=== PATIENT | female | born 1990 | race Caucasian/White ===

== ENCOUNTER 2017-08-26 09:26 | Emergency (ER) | payer SELFPAY ==
[2017-08-26 09:32] VITALS: RESP 16; TEMP 98.8
--- NOTE | 2017-08-26 09:45 | EDPHY ---
H & P Stated Complaint: bloody diarrhea x 24 hrs/travel[place] from [facility] thursday Time Seen by Provider: 08/26/17 09:44 HPI/ROS: HPI: This is a 27-year-old female who presents with Chief Complaint: bloody diarrhea x 24 hrs/traveled to [place] from [place] thursday Location: GI Quality: Bloody diarrhea Duration: 24 hr Signs and Symptoms: no fever, no nausea, no vomiting, no hematemesis, no blood in stool, no abdominal bloating, no diarrhea, no back pain, no urinary symptoms , no vaginal bleeding or discharge, no indigestion, no chest pain, no shortness of breath Timing: Acute, intermittent episodes Severity: [id number] Context: Patient has a history hypothyroidism, traveled 2 days ago from [facility] to [facility] on a 12 hr plane flight. She reports that yesterday she had 3 episodes of loose stool that was blood tinged and this morning she also had a small amount of loose stool that was blood tinged around 5:00 a.m. She is able to eat breakfast approximately 1-2 hours after without any difficulty. She reports that prior to having the diarrhea she will have abdominal cramping or pressure but denies any pain. LMP 2-3 weeks ago. No history of inflammatory bowel or ischemic bowel disease. Denies any fever/ urinary symptoms/vaginal bleeding discharge/hemorrhoids. Patient reports that she feels fine other than noting that small amounts of blood in her stool. There is a possibility of food borne illness. Patient is extremely concerned about cost and once the minimal workup performed as she has no travel insurance and is returning to [place] in 1 week. Modifying Factors: None Comment: ROS: see HPI Constitutional: No fever, no chills, no weight loss Eyes: No blurred vision Respiratory: No shortness of breath, no cough Cardiovascular: No chest pain, no palpitations Gastrointestinal: No nausea, no vomiting, no diarrhea, no hematemesis, + blood in stool Genitourinary: No dysuria, no blood in urine Extremities: No myalgias, no edema Neurologic: No weakness, no numbness Skin: No rashes, no petechiae Hematologic: No bruising, no bleeding MEDICAL/SURGICAL/SOCIAL HISTORY: Medical history: Hypothyroidism. Surgical history: Denies Social history: PhD student. Originally from [facility]. CONSTITUTIONAL: Extremely well-appearing adult white female, nontoxic in appearance, awake and alert, no obvious distress HEENT: Atraumatic and normocephalic, PERRL, EOMI. Tympanic membranes clear. Oropharynx clear, no exudate and moist pink mucosa. Airway patent. No lymphadenopathy. No meningismus. Cardiovascular: Normal S1/S2, regular rate, regular rhythm, without murmur rub or gallop. PULMONARY/CHEST: Symmetrical and nontender. Clear to auscultation bilaterally. Good air movement. No accessory muscle usage. ABDOMEN: Soft, nondistended, nontender, no rebound, no guarding, no peritoneal signs, no masses or organomegaly. No CVAT. RECTAL: Good sphincter tone, light brown stool in vault, no external hemorrhoids , no fissures, no palpable masses, guaiac negative EXTREMITIES: 2/2 pulses, strength 5/5, no deformities, no clubbing, no cyanosis or edema. NEUROLOGICAL: no focal neuro deficits. GCS 15. SKIN: Warm and dry, no erythema. no rash. Good capillary refill. Source: Patient Exam Limitations: No limitations - Personal History LMP (Females 10-55): 22-28 Days Ago Current Tetanus/Diphtheria Vaccine: Unsure - Medical/Surgical History Hx Asthma: No Hx Chronic Respiratory Disease: No Hx Diabetes: No Hx Cardiac Disease: No Hx Renal Disease: No Hx Cirrhosis: No Hx Alcoholism: No Hx HIV/AIDS: No Hx Splenectomy or Spleen Trauma: No Other PMH: hypothyroid - Social History Smoking Status: Never smoked Constitutional: Initial Vital Signs Temperature (C) 37.1 C 08/26/17 09:30 Heart Rate 84 08/26/17 09:30 Respiratory Rate 16 08/26/17 09:30 Blood Pressure 132/83 H 08/26/17 09:30 O2 Sat (%) 98 08/26/17 09:30 O2 Delivery Mode Room Air Allergies/Adverse Reactions: No Known Allergies Allergy (Unverified 08/26/17 09:28) Home Medications: Medication Instructions Recorded Ciprofloxacin [Cipro] 500 mg PO BID #10 tab 08/26/17 Levothyroxine 08/26/17 Medical Decision Making ED Course/Re-evaluation: Labs and guaiac ordered Abdomen soft and nontender; doubt surgical abdomen Patient has politely declined any imaging of her abdomen and pelvis as well as IV fluids. Patient tolerating p.o. Without difficulty. Guaiac negative Labs reviewed and grossly unremarkable Advised to start Cipro and supportive care. Any worsening symptoms return to the emergency room immediately. Follow up with her PCP/GI in [place] next week. This patient was seen under the supervision of my primary supervising physician. I evaluated care for this patient independently. Differential Diagnosis: Lower GI bleeding including but not limited to traveler's diarrhea, diverticulosis, tumor, AVM, hemorrhoid and anal fissure. - Data Points Laboratory Results: Laboratory Results 08/26/17 10:00 08/26/17 10:00 08/26/17 08/26/17 08/26/17 10:00 10:00 10:00 WBC 8.84 10^3/uL 10^3/uL (3.80-9.50) RBC 4.72 10^6/uL 10^6/uL (4.18-5.33) Hgb 14.1 g/dL g/dL (12.6-16.3) Hct 41.4 % % (38.0-47.0) MCV 87.7 fL fL (81.5-99.8) MCH 29.9 pg pg (27.9-34.1) MCHC 34.1 g/dL g/dL (32.4-36.7) RDW 12.6 % % (11.5-15.2) Plt Count 271 10^3/uL 10^3/uL (150-400) MPV 10.0 fL fL (8.7-11.7) Neut % (Auto) 74.2 % % (39.3-74.2) Lymph % (Auto) 16.9 % % (15.0-45.0) [place] % (Auto) 7.6 % % (4.5-13.0) Eos % (Auto) 0.5 % L % (0.6-7.6) Baso % (Auto) 0.3 % % (0.3-1.7) Nucleat RBC Rel Count 0.0 % % (0.0-0.2) Absolute Neuts (auto) 6.57 10^3/uL H 10^3/uL (1.70-6.50) Absolute Lymphs (auto) 1.49 10^3/uL 10^3/uL (1.00-3.00) Absolute Monos (auto) 0.67 10^3/uL 10^3/uL (0.30-0.80) Absolute Eos (auto) 0.04 10^3/uL 10^3/uL (0.03-0.40) Absolute Basos (auto) 0.03 10^3/uL 10^3/uL (0.02-0.10) Absolute Nucleated RBC 0.00 10^3/uL 10^3/uL (0-0.01) Immature Gran % 0.5 % % (0.0-1.1) Immature Gran # 0.04 10^3/uL 10^3/uL (0.00-0.10) Sodium 142 mEq/L mEq/L (135-145) Potassium 4.8 mEq/L mEq/L (3.5-5.2) Chloride 104 mEq/L mEq/L (97-110) Carbon Dioxide 26 mEq/l mEq/l (22-31) Anion Gap 12 mEq/L mEq/L (8-16) BUN 9 mg/dL mg/dL (7-23) Creatinine 0.8 mg/dL mg/dL (0.6-1.0) Estimated GFR > 60 Glucose 87 mg/dL mg/dL (70-100) Calcium 9.9 mg/dL mg/dL (8.5-10.4) Total Bilirubin 0.6 mg/dL mg/dL (0.1-1.4) Conjugated Bilirubin 0.3 mg/dL mg/dL (0.0-0.5) Unconjugated Bilirubin 0.3 mg/dL mg/dL (0.0-1.1) AST 22 IU/L IU/L (14-46) ALT 30 IU/L IU/L (9-52) Alkaline Phosphatase 73 IU/L IU/L (38-126) Total Protein 7.5 g/dL g/dL (6.3-8.2) Albumin 4.2 g/dL g/dL (3.5-5.0) Lipase 85 IU/L IU/L (23-300) Beta HCG, Qual NEGATIVE Stool Occult Bld Scrn 08/26/17 09:55 WBC RBC Hgb Hct MCV MCH MCHC RDW Plt Count MPV Neut % (Auto) Lymph % (Auto) [place] % (Auto) Eos % (Auto) Baso % (Auto) Nucleat RBC Rel Count Absolute Neuts (auto) Absolute Lymphs (auto) Absolute Monos (auto) Absolute Eos (auto) Absolute Basos (auto) Absolute Nucleated RBC Immature Gran % Immature Gran # Sodium Potassium Chloride Carbon Dioxide Anion Gap BUN Creatinine Estimated GFR Glucose Calcium Total Bilirubin Conjugated Bilirubin Unconjugated Bilirubin AST ALT Alkaline Phosphatase Total Protein Albumin Lipase Beta HCG, Qual Stool Occult Bld Scrn NEGATIVE (NEGATIVE) Departure - Departure Disposition: Home, Routine, Self-Care Clinical Impression: Traveler's diarrhea Condition: Good Instructions: Traveler's Diarrhea (ED), Nutrition Tips for Relief of Diarrhea ( ED) Additional Instructions: Your laboratory studies today are completely within normal limits. Consume a minimum of 8-10 glasses of water or electrolyte fluid replacement drinks that include Gatorade, Powerade, Pedialyte. Eat a bland diet for the next 48 hours and then slowly advance as tolerated. Take Ciprofloxacin BID x 5 days. Return to the Emergency Room if symptoms do not resolve in the next 48-72 hours , you spike a fever > 102 F, or experience intractable abdominal pain/nausea/ vomiting. Referrals: [facility],. [Clinic] - As per Instructions Prescriptions: Ciprofloxacin [Cipro] 500 mg PO BID #10 tab
[2017-08-26 10:24] LABS: PLATELET COUNT 271 10^3/uL (150-400)
[2017-08-26 11:09] VITALS: BP 120/80; PULSE 79; O2SAT 99
== END 2017-08-26 11:09 | disposition home or self-care (01) ==
DX: R19.7 Diarrhea, unspecified (principal)